=== PATIENT | male | born 1965 | race Native Hawaiian/Other Pacific Islander ===

== ENCOUNTER 2019-02-20 23:34 | Emergency (ER) | payer OTHER ==
[~2019-02-20] VITALS: Ht 180.3 cm; Wt 83.9 kg
[2019-02-21 00:13] LABS: PLATELET COUNT 235 K/uL (142-355)
[2019-02-21 00:16] LABS: POTASSIUM 3.6 mmol/L (3.6-5.2)
[2019-02-21 02:49] VITALS: BP 116/71; TEMP 98
== END 2019-02-21 02:45 | disposition home or self-care (01) ==
LOC: ED 23:34
PROVIDERS: Emergency Medicine
DX: K40.90 Unilateral inguinal hernia, without obstruction or gangrene, not specified as recurrent (principal); S43.492A Other sprain of left shoulder joint, initial encounter; W19.XXXA Unspecified fall, initial encounter
CPT/HCPCS: 80053; 81000; 82150; 83690; 85027; 96374; 99284; J1885; Q9963